=== PATIENT | male | born 1965 | race Caucasian/White ===

== ENCOUNTER 2021-02-04 17:24 | Emergency (ER) | payer BC ==
[2021-02-04] MEDS ORDERED: Sodium Chloride 0.9% 10 ML Syringe FLUSH PRN (17:29)
[2021-02-04] MEDS ORDERED: Sodium Chloride 0.9% 2.5 ML Syringe FLUSH PRN (17:29)
--- NOTE | 2021-02-04 17:39 | EDM.PDOC ---
ED HPI GENERAL MEDICAL PROBLEM - General Chief Complaint: Abdominal Pain Stated Complaint: ABDOMINAL PAIN Time Seen by Provider: 02/04/21 17:28 Source of Information: Reports: Patient History Limitations: Reports: No Limitations - History of Present Illness INITIAL COMMENTS - FREE TEXT/NARRATIVE: HISTORY AND PHYSICAL: History of present illness: Patient is a 55-year-old male who presents to the emergency room with complaints of abdominal pain. He states last week he had a 3-day episode of epigastric pain with nausea and vomiting. He was able to start to feel better he could tolerate food. He states a few days later symptoms started again. Pain is located in the epigastrium, upper abdomen and today it radiates into the right lower quadrant. He states he has had nausea and vomiting. Unable to keep fluids or food down. Patient denies any fever, chills, headache, change in vision, syncope or near syncope. Denies any chest pain, back pain, shortness of breath or cough. Denies any diarrhea, constipation or dysuria. Has not noted any blood in urine or stool. Patient has been eating and drinking appropriately. Denies any recent travel, antibiotic use or sick contacts. Denies any alcohol or drug abuse. + Tobacco user/social alcohol use. *Not COVID-19 vaccinated Review of systems: As per history of present illness and below otherwise all systems reviewed and negative. Past medical history: As per history of present illness and as reviewed below otherwise noncontributory. Surgical history: As per history of present illness and as reviewed below otherwise noncontributory. Social history: See social history for further information Family history: As per history of present illness and as reviewed below otherwise noncontributory. Physical exam: General: Well developed and well nourished 55-year-old male. Alert and orientated x 3. Nontoxic in appearance and in no acute distress. Vital signs are stable and have been reviewed by me. Nursing notes were reviewed. Accompanied by significant other. HEENT: Atraumatic, normocephalic, pupils equal and reactive bilaterally, negative for conjunctival pallor or scleral icterus, mucous membranes moist, trachea midline. No drooling or trismus noted. No meningeal signs. No hot potato voice noted. Lungs: Clear to auscultation bilaterally. No wheezes, rales, or rhonchi. Chest nontender. Normal work of breathing, no accessory muscles used. Heart: S1S2, regular rate and rhythm without overt murmur, gallops, or rubs. No JVD. No peripheral edema Abdomen: Soft, nondistended, RLQ and epigastric tenderness to palpation. +Rebound tenderness. Normoactive bowel sounds. Negative for masses or costovertebral tenderness. Skin: Intact, warm, dry. No lesions or rashes noted. Hematologic: No petechiae or purpra. Mucosa appropriate color and normal nail bed color and refill. Extremities: Atraumatic, moves all extremities per self without difficulty or deficits, negative for cords or calf pain. Neurovascular unremarkable. Neuro: Awake, alert, oriented. Cranial nerves II through XII unremarkable. Cerebellum unremarkable. Motor and sensory unremarkable throughout. Exam nonfocal. Psychiatric: Mood and affect are appropriate. Normal thought process. Answering questions appropriately. Notes: *This patient was seen and evaluated during the 2019 SARS-CoV-2 novel coronavirus pandemic period. Community viral transmission is ongoing at time of this encounter and the emergency department is operating under pandemic response procedures. Patient is a 55-year-old male who presents to the emergency room with complaints of epigastric pain, RLQ pain, nausea and vomiting. He states he has had symptoms on and off since January 23. Significant other who is at bedside states that he has been complaining of significant pain and "he has a high pain tolerance". No one else in the household is ill. No recent travel. He does have mild tenderness to the epigastrium. We will do basic lab work, IV fluids and medications. Patient does have a leukocytosis. Will do a CT of the abdomen and pelvis. Pain is improved since medication. CT shows a mesenteric vein thrombus, without evidence of portal vein thrombus. A mesenteric vein branch of the right lower quadrant appears to be most severely affected. Surrounding edema/stranding within the adjacent mesentery. The appendix is mildly enlarged, but the surrounding mesenteric stranding, is probably more likely related to the venous thrombosis described above, however early or developing appendicitis is not entirely excludable. No other acute abnormalities identified. Extensive diverticulosis of distal descending and sigmoid colon with no radiographic evidence of diverticulitis. Distended gallbladder, with multiple calculi, but no evidence to suggest acute cholecystitis/biliary enlargement. 2044: Dr. Hernandez was consulted on this case. He states he is not comfortable keeping the patient here and request that the patient be sent to a higher level of care where they have interventional radiology capabilities. 2100: I spoke with Dr. Dennison, the general surgeon at [facility] in [place]. He states he will happily accept this patient for further care and management. He does request anticoagulation, heparin to be started prior to patient leaving. He states this patient does not need IV antibiotics at this time. I also spoke with Dr. Ventura the emergency room about patient's transfer and arrival. I have talked with the patient about today's findings, in addition to providing specific details for plan of care. Reassessment at the time of disposition demonstrates that the patient is in no acute distress. He continues to have mild/moderate RLQ pain. Heparin was started per protocol. Vital signs are stable. They are aware of the need for transfer to a higher level of care and are agreeable. Diagnostics: CBC, CMP, UA, lipase, troponin Therapeutics: IV fluid, Pepcid, morphine, Zofran, Heparin Impression: Mesenteric vein thrombus Acute abdominal pain secondary to possible secondary appendicitis Plan: Transfer to [facility] via ground EMS Definitive disposition and diagnosis as appropriate pending reevaluation and review of above. Abdominal Pain Pain Score (Numeric/FACES): 6 - Related Data Allergies Allergy/AdvReac Type Severity Reaction Status Date / Time No Known Allergies Allergy Verified 02/04/21 18:13 Home Meds: Home Meds . [No Known Home Meds] 02/04/21 [History] ED ROS GENERAL - Review of Systems Review Of Systems: Comprehensive ROS is negative, except as noted in HPI. ED EXAM, GI/ABD - Physical Exam Exam: See Below (See dictation) Course - Vital Signs Last Recorded V/S: Last Vital Signs Temp 97.6 F 02/04/21 17:50 Pulse 84 02/04/21 20:33 Resp 20 02/04/21 20:33 BP 113/64 02/04/21 20:33 Pulse Ox 95 02/04/21 20:33 - Orders/Labs/Meds Orders: Active Orders 24 hr Category Date Time Status INR,PT,PROTHROMBIN TIME [COAG] Stat Lab 02/04/21 20:46 Ordered LACTATE SEPSIS W/ REFLEX [CHEM] Stat Lab 02/04/21 20:46 Ordered PTT,PARTIAL THROMBOPLSTIN TIME [COAG] Stat Lab 02/04/21 20:46 Ordered Heparin Sodium Med 02/04/21 21:06 Once 5,000 units IVPUSH ONETIME ONE Heparin Sodium/0.45% NaCl [Heparin 25,000 Units in 1/2 Med 02/04/21 21:15 Ordered NS 500 ML] 500 ml IV TITRATE Morphine Med 02/04/21 21:06 Once 4 mg IVPUSH ONETIME ONE Sodium Chloride 0.9% [Normal Saline] 1,000 ml Med 02/04/21 19:25 Active IV STAT Sodium Chloride 0.9% [Saline Flush] Med 02/04/21 17:29 Active 10 ml FLUSH ASDIRECTED PRN Sodium Chloride 0.9% [Saline Flush] Med 02/04/21 17:29 Active 2.5 ml FLUSH ASDIRECTED PRN Saline Lock Insert [OM.PC] Stat Oth 02/04/21 17:29 Ordered Medication Orders Sodium Chloride (Normal Saline) 1,000 mls @ 125 mls/hr IV STAT ONE Stop: 02/05/21 03:24 Last Admin: 02/04/21 19:34 Dose: 125 mls/hr Documented by: EVERTIM Sodium Chloride (Sodium Chloride 0.9% 10 Ml Syringe) 10 ml FLUSH ASDIRECTED PRN PRN Reason: Keep Vein Open Last Admin: 02/04/21 19:28 Dose: 10 ml Documented by: EVERTIM Sodium Chloride (Sodium Chloride 0.9% 2.5 Ml Syringe) 2.5 ml FLUSH ASDIRECTED PRN PRN Reason: Keep Vein Open Last Admin: 02/04/21 19:28 Dose: 2.5 ml Documented by: ANGELIKA Labs: Laboratory Tests 02/04/21 02/04/21 02/04/21 Range/Units 17:59 17:59 17:59 WBC 12.90 H (4.0-11.0) K/uL RBC 4.23 L (4.50-5.90) M/uL Hgb 12.8 L (13.0-17.0) g/dL Hct 37.4 L (38.0-50.0) % MCV 88.4 (80.0-98.0) fL MCH 30.3 (27.0-32.0) pg MCHC 34.2 (31.0-37.0) g/dL RDW Std Deviation 47.0 (28.0-62.0) fl RDW Coeff of Bandar 15 (11.0-15.0) % Plt Count 394 (150-400) K/uL Neut % (Auto) 75.9 (48.0-80.0) % Lymph % (Auto) 16.8 (16.0-40.0) % [place] % (Auto) 6.0 (0.0-15.0) % Eos % (Auto) 1.1 (0.0-7.0) % Baso % (Auto) 0.2 (0.0-1.5) % Neut # (Auto) 9.8 H (1.4-5.7) K/uL Lymph # (Auto) 2.2 (0.6-2.4) K/uL [place] # (Auto) 0.8 (0.0-0.8) K/uL Eos # (Auto) 0.1 (0.0-0.7) K/uL Baso # (Auto) 0.0 (0.0-0.1) K/uL Nucleated RBC % 0.0 /100WBC Nucleated RBCs # 0 K/uL Sodium 138 (136-148) mmol/L Potassium 4.1 (3.5-5.1) mmol/L Chloride 101 (98-107) mmol/L Carbon Dioxide 28.7 (21.0-32.0) mmol/L BUN 14 (7.0-18.0) mg/dL Creatinine 0.8 (0.8-1.3) mg/dL Est Cr Clr Drug Dosing 109.81 mL/min Estimated GFR (MDRD) > 60.0 ml/min Glucose 109 H (74-106) mg/dL Calcium 9.5 (8.5-10.1) mg/dL Total Bilirubin 1.0 (0.2-1.0) mg/dL AST 20 (15-37) IU/L ALT 49 (14-63) IU/L Alkaline Phosphatase 85 (46-116) U/L Troponin I < 0.050 (0.000-0.056) ng/mL Total Protein 7.9 (6.4-8.2) g/dL Albumin 3.5 (3.4-5.0) g/dL Globulin 4.4 H (2.6-4.0) g/dL Albumin/Globulin Ratio 0.8 L (0.9-1.6) Lipase 79 (73-393) U/L Urine Color Urine Appearance Urine pH (5.0-8.0) Ur Specific Williams (1.001-1.035) Urine Protein (NEGATIVE) mg/dL Urine Glucose (UA) (NEGATIVE) mg/dL Urine Ketones (NEGATIVE) mg/dL Urine Occult Blood (NEGATIVE) Urine Nitrite (NEGATIVE) Urine Bilirubin (NEGATIVE) Urine Urobilinogen (<2.0) EU/dL Ur Leukocyte Esterase (NEGATIVE) 02/04/21 Range/Units 20:00 WBC (4.0-11.0) K/uL RBC (4.50-5.90) M/uL Hgb (13.0-17.0) g/dL Hct (38.0-50.0) % MCV (80.0-98.0) fL MCH (27.0-32.0) pg MCHC (31.0-37.0) g/dL RDW Std Deviation (28.0-62.0) fl RDW Coeff of Bandar (11.0-15.0) % Plt Count (150-400) K/uL Neut % (Auto) (48.0-80.0) % Lymph % (Auto) (16.0-40.0) % [place] % (Auto) (0.0-15.0) % Eos % (Auto) (0.0-7.0) % Baso % (Auto) (0.0-1.5) % Neut # (Auto) (1.4-5.7) K/uL Lymph # (Auto) (0.6-2.4) K/uL [place] # (Auto) (0.0-0.8) K/uL Eos # (Auto) (0.0-0.7) K/uL Baso # (Auto) (0.0-0.1) K/uL Nucleated RBC % /100WBC Nucleated RBCs # K/uL Sodium (136-148) mmol/L Potassium (3.5-5.1) mmol/L Chloride (98-107) mmol/L Carbon Dioxide (21.0-32.0) mmol/L BUN (7.0-18.0) mg/dL Creatinine (0.8-1.3) mg/dL Est Cr Clr Drug Dosing mL/min Estimated GFR (MDRD) ml/min Glucose (74-106) mg/dL Calcium (8.5-10.1) mg/dL Total Bilirubin (0.2-1.0) mg/dL AST (15-37) IU/L ALT (14-63) IU/L Alkaline Phosphatase (46-116) U/L Troponin I (0.000-0.056) ng/mL Total Protein (6.4-8.2) g/dL Albumin (3.4-5.0) g/dL Globulin (2.6-4.0) g/dL Albumin/Globulin Ratio (0.9-1.6) Lipase (73-393) U/L Urine Color YELLOW Urine Appearance CLEAR Urine pH 6.5 (5.0-8.0) Ur Specific Williams 1.010 (1.001-1.035) Urine Protein NEGATIVE (NEGATIVE) mg/dL Urine Glucose (UA) NEGATIVE (NEGATIVE) mg/dL Urine Ketones NEGATIVE (NEGATIVE) mg/dL Urine Occult Blood NEGATIVE (NEGATIVE) Urine Nitrite NEGATIVE (NEGATIVE) Urine Bilirubin NEGATIVE (NEGATIVE) Urine Urobilinogen 0.2 (<2.0) EU/dL Ur Leukocyte Esterase NEGATIVE (NEGATIVE) Meds: Medications Generic Name Dose Route Start Last Admin Trade Name Freq PRN Reason Stop Dose Admin Sodium Chloride 1,000 mls @ 125 mls/hr 02/04/21 19:25 02/04/21 19:34 Normal Saline IV 02/05/21 03:24 125 mls/hr STAT ONE Administration Sodium Chloride 10 ml 02/04/21 17:29 02/04/21 19:28 Sodium Chloride 0.9% 10 Ml Syringe FLUSH 10 ml ASDIRECTED PRN Administration Keep Vein Open Sodium Chloride 2.5 ml 02/04/21 17:29 02/04/21 19:28 Sodium Chloride 0.9% 2.5 Ml Syringe FLUSH 2.5 ml ASDIRECTED PRN Administration Keep Vein Open Discontinued Medications Generic Name Dose Route Start Last Admin Trade Name Freq PRN Reason Stop Dose Admin Famotidine 20 mg 02/04/21 17:56 02/04/21 18:49 Famotidine 20 Mg/2 Ml Sdv IVPUSH 02/04/21 17:57 20 mg ONETIME ONE Administration Sodium Chloride 1,000 mls @ 999 mls/hr 02/04/21 17:55 02/04/21 19:27 Normal Saline IV 02/04/21 18:55 999 mls/hr STAT ONE Administration Iopamidol 100 ml 02/04/21 19:45 02/04/21 19:53 Iopamidol 755 Mg/Ml 500 Ml Multipack Bottle IVPUSH 02/04/21 19:46 100 ml ONETIME STA Administration Morphine Sulfate 4 mg 02/04/21 17:55 02/04/21 18:53 Morphine 4 Mg/Ml Syringe IVPUSH 02/04/21 17:56 4 mg ONETIME ONE Administration Ondansetron HCl 4 mg 02/04/21 17:55 02/04/21 18:49 Ondansetron 4 Mg/2 Ml Sdv IVPUSH 02/04/21 17:56 4 mg ONETIME ONE Administration Departure - Departure Time of Disposition: 21:20 Disposition: DC/[facility]fer to [facility] 02 Clinical Impression: Mesenteric vein thrombosis, Acute abdominal pain in right lower quadrant - Discharge Information Referrals: PCP,None [Primary Care Provider] - Forms: ED Department Discharge Sepsis Event Note (ED) - Focused Exam Vital Signs: Vital Signs Temp Pulse Resp BP Pulse Ox 02/04/21 20:33 84 20 113/64 95 02/04/21 17:50 97.6 F 96 17 133/69 98 - My Orders Last 24 Hours: My Active Orders 02/04/21 17:29 Sodium Chloride 0.9% [Saline Flush] 10 ml FLUSH ASDIRECTED PRN Sodium Chloride 0.9% [Saline Flush] 2.5 ml FLUSH ASDIRECTED PRN Saline Lock Insert [OM.PC] Stat 02/04/21 19:25 Sodium Chloride 0.9% [Normal Saline] 1,000 ml IV STAT 02/04/21 20:46 INR,PT,PROTHROMBIN TIME [COAG] Stat LACTATE SEPSIS W/ REFLEX [CHEM] Stat PTT,PARTIAL THROMBOPLSTIN TIME [COAG] Stat 02/04/21 21:06 Heparin Sodium 5,000 units IVPUSH ONETIME ONE Morphine 4 mg IVPUSH ONETIME ONE 02/04/21 21:15 Heparin Sodium/0.45% NaCl [Heparin 25,000 Units in 1/2 NS 500 ML] 500 ml IV TITRATE - Assessment/Plan Last 24 Hours: My Active Orders 02/04/21 17:29 Sodium Chloride 0.9% [Saline Flush] 10 ml FLUSH ASDIRECTED PRN Sodium Chloride 0.9% [Saline Flush] 2.5 ml FLUSH ASDIRECTED PRN Saline Lock Insert [OM.PC] Stat 02/04/21 19:25 Sodium Chloride 0.9% [Normal Saline] 1,000 ml IV STAT 02/04/21 20:46 INR,PT,PROTHROMBIN TIME [COAG] Stat LACTATE SEPSIS W/ REFLEX [CHEM] Stat PTT,PARTIAL THROMBOPLSTIN TIME [COAG] Stat 02/04/21 21:06 Heparin Sodium 5,000 units IVPUSH ONETIME ONE Morphine 4 mg IVPUSH ONETIME ONE 02/04/21 21:15 Heparin Sodium/0.45% NaCl [Heparin 25,000 Units in 1/2 NS 500 ML] 500 ml IV TITRATE
[2021-02-04] MEDS ORDERED: Morphine 4 MG/ML Syringe IVPUSH ONE ×2 (17:55→21:06)
[2021-02-04] MEDS ORDERED: Ondansetron 4 MG/2 ML SDV IVPUSH ONE (17:55)
[2021-02-04] MEDS ORDERED: Famotidine 20 MG/2 ML SDV IVPUSH ONE (17:56)
[2021-02-04 18:46] LABS: BLOOD UREA NITROGEN,BUN 14 mg/dL (7.0-18.0); CARBON DIOXIDE,CO2 28.7 mmol/L (21.0-32.0); CHLORIDE,CL 101 mmol/L (98-107); GLUCOSE RANDOM 109 mg/dL (74-106); LIPASE 79 U/L (73-393); POTASSIUM,K 4.1 mmol/L (3.5-5.1); SODIUM,NA 138 mmol/L (136-148)
[2021-02-04] MEDS: Sodium Chloride 0.9% 1,000 ML IV ONE ×2 (18:49→19:27)
[2021-02-04] MEDS ORDERED: Sodium Chloride 0.9% 1,000 ML IV ONE (19:25)
[2021-02-04] MEDS ORDERED: Iopamidol 755 MG/ML 500 ML Multipack Bottle IVPUSH STA (19:45)
--- NOTE | 2021-02-04 20:44 | CT ---
INDICATION: Right lower quadrant pain, vomiting TECHNIQUE: CT abdomen and pelvis acquired with 100 mL Isovue 370 IV contrast. COMPARISON: None FINDINGS: Lower chest: Nonspecific 9 millimeter nodule in the anterolateral right middle lobe, image 2 of series 202. Otherwise, unremarkable. Liver: Unremarkable. Spleen: Unremarkable. Pancreas: Unremarkable. Gallbladder and bile ducts: Distended gallbladder containing multiple calculi, no evidence to suggest acute cholecystitis. There is no biliary enlargement. Kidneys: Unremarkable. Adrenal glands: Unremarkable. GI tract: Appendix is enlarged, measuring up to 13 millimeters transversely. There is mild linear stranding present in the right lower quadrant. Appendicitis not entirely excluded, but the mesenteric stranding is more likely related to mesenteric vein thrombosis, which can be best seen on coronal images 54 through 57 of series 203. The venous branch to the right lower quadrant also demonstrates thrombus within, as visible on images 55-63 of series 203. No focal bowel wall thickening. Moderate diverticulosis of the distal descending and sigmoid colon, no radiographic evidence of diverticulitis. Vascular structures: Negative. No sign of aneurysm. Lymph nodes: Unremarkable. Miscellaneous: Unremarkable. No free air. Small amount of free fluid in the pelvis, nonspecific and possibly reactive Pelvic Organs: Unremarkable. Bones: Multilevel lumbar degenerative disc disease/vacuum phenomena. Extensive facet hypertrophic change, on the right at lumbosacral junction. No acute fracture/bony abnormality. IMPRESSION: 1. Mesenteric vein thrombus, without evidence of portal vein thrombus. A mesenteric vein branch of the right lower quadrant appears to be most severely affected. Surrounding edema/stranding within the adjacent mesentery. 2. The appendix is mildly enlarged, but the surrounding mesenteric stranding, is probably more likely related to the venous thrombosis described above, however early or developing appendicitis is not entirely excludable. 3. No other acute abnormalities identified. 4. Extensive diverticulosis of distal descending and sigmoid colon with no radiographic evidence of diverticulitis. 5. Distended gallbladder, with multiple calculi, but no evidence to suggest acute cholecystitis/biliary enlargement. Please note that all CT scans at this facility use dose modulation, iterative reconstruction, and/or weight-based dosing when appropriate to reduce radiation dose to as low as reasonably achievable. Dictated by Iván Valdez MD @ 02/04/2021 8:42:[address] Iván Valdez @ Feb 04 2021 8:42PM
[2021-02-04] MEDS ORDERED: Heparin Sodium 5,000 Units/ML Vial IVPUSH ONE (21:06)
[2021-02-04] MEDS ORDERED: Heparin Sodium/0.45% NaCl 500 ML IV SCH (21:15)
== END 2021-02-04 22:08 ==
LOC: MW.ED 17:24
DX: K55.059 Acute (reversible) ischemia of intestine, part and extent unspecified (principal)
CPT/HCPCS: 36415; 74177; 80053; 81003; 83605; 83690; 84484; 85025; 85610; 85730; 96365; 96375; 96376; 99285; J1644; J2270; J2405; J3490; J7030; Q9967; 99284

== ENCOUNTER 2021-02-21 15:12 | Emergency (ER) | payer BC ==
[2021-02-21] MEDS ORDERED: Sodium Chloride 0.9% 2.5 ML Syringe FLUSH PRN (16:23)
[2021-02-21] MEDS ORDERED: Sodium Chloride 0.9% 10 ML Syringe FLUSH PRN (16:23)
[2021-02-21] MEDS ORDERED: Sodium Chloride 0.9% 1,000 ML IV ONE ×2 (16:27→18:41)
[2021-02-21 17:17] LABS: BLOOD UREA NITROGEN,BUN 13 mg/dL (7.0-18.0); CARBON DIOXIDE,CO2 27.5 mmol/L (21.0-32.0); CHLORIDE,CL 101 mmol/L (98-107); GLUCOSE RANDOM 125 mg/dL (74-106); LIPASE 43 U/L (73-393); SODIUM,NA 136 mmol/L (136-148)
[2021-02-21 17:39] LABS: CORONAVIRUS COVID-19 NAA NEGATIVE (NEGATIVE); INFLUENZA A NAA NEGATIVE (NEGATIVE); INFLUENZA B NAA NEGATIVE (NEGATIVE)
--- NOTE | 2021-02-21 17:47 | EDM.PDOC ---
ED HPI GENERAL MEDICAL PROBLEM - General Chief Complaint: Gastrointestinal Problem Stated Complaint: VOMMITTING AND FEVER Time Seen by Provider: 02/21/21 15:15 Source of Information: Reports: Patient History Limitations: Reports: No Limitations - History of Present Illness INITIAL COMMENTS - FREE TEXT/NARRATIVE: HISTORY AND PHYSICAL: History of present illness: Patient is a 55-year-old male who presents emergency room today with concern of fever that started last night documented that 101 orally at home. Patient states that he is also had the chills and sweating all night long and states he woke up this morning covered in sweat and with a fever. Patient states he did take a dose of Tylenol approximately 1 hour before coming to the emergency room and states that this has "wiped out "his fever and states that he has improved symptoms with the Tylenol. 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 Patient states he is not having any abdominal pain or any other pain associated with the fever. Patient denies chest pain, shortness of breath, or cough. Denies headache, neck stiff ness, change in vision, syncope, or near syncope. Denies nausea, vomiting, abdominal pain, diarrhea, constipation, or dysuria. Has not noted any blood in urine or stool. Patient has been eating and drinking appropriately. Review of systems: As per history of present illness and below otherwise all systems reviewed and negative. Past medical history: As per history of present illness and as reviewed below otherwise noncontributory. Surgical history: As per history of present illness and as reviewed below otherwise noncontributory. Social history: See social history for further information Family history: As per history of present illness and as reviewed below otherwise noncontributory. Physical exam: General: Patient is alert, oriented, and in no acute distress. Patient sitting comfortably on exam table. Vitals stable and reviewed by me. HEENT: Atraumatic, normocephalic, pupils equal and reactive bilaterally, negative for conjunctival pallor or scleral icterus, mucous membranes moist, TMs normal bilaterally, throat clear, neck supple, nontender, trachea midline. No drooling or trismus noted. No meningeal signs. No hot potato voice noted. Lungs: Clear to auscultation, breath sounds equal bilaterally, chest nontender. Heart: S1S2, regular rate and rhythm without overt murmur Abdomen: Super small incisions noted to the right sided abdomen which appear to be healing well and nontender without drainage. Otherwise, soft, nondistended, nontender. Negative for masses or hepatosplenomegaly. Negative for costovertebral tenderness. Pelvis: Stable nontender. Genitourinary: Deferred. Rectal: Deferred. Skin: Intact, warm, dry. No lesions or rashes noted. Extremities: Otherwise, atraumatic, negative for cords or calf pain. Neurovascular unremarkable. Neuro: Awake, alert, oriented. Cranial nerves II through XII unremarkable. Cerebellum unremarkable. Motor and sensory unremarkable throughout. Exam nonfocal. Notes: Dr. Caruso verbally involved in patient care. Patient is a 55-year-old male who presents emergency room today with concern of fever, chills, and sweats starting last night and occurring today. Upon arrival to the ED, patient is vitally stable and well-appearing on exam and afebrile. However, patient has noted to take a dose of Tylenol for fever 1 hour prior to coming to the emergency room. Patient does have a recent history of being transferred for mesenteric vein thrombosis. Upon chart review patient was seen in our emergency room on 02/04/2021 and at that time was transferred to [facility] to Dr. Dennison, general surgery, in my not. Patient was accepted by the ED provider Dr. 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 Patient was started on heparin in the emergency room and transferred via EMS. Abdominal pelvic CT scan on 02/04/2021 does show mesenteric vein thrombosis without evidence of portal vein thrombus affecting the right lower quadrant more significantly with surrounding edema and stranding in the mesentery. The appendix at this time was also mildly enlarged with surrounding stranding, thought to be more related to the venous thrombosis however could not rule out early appendicitis. Also shows distended gallbladder with multiple calculi but no evidence to suggest acute cholecystitis or biliary enlargement. Will obtain post-op labwork today, provide 1LNS bolus and reassess patient. See. Dr. Caruso dictation for specific EKG interpretation. However, NSR without STEMI. CBC is remarkable for a leukocytosis at 18.88 which has increased since his prior on 02/04/2021 which was 12.9. Patient also noted to be mildly anemic with a hemoglobin of 12 and hematocrit of 35.2 respectively. Red blood cells mildly decreased at 4.09. Otherwise, remainder of CBC is unremarkable. CMP noted for a mild elevation of glucose at 125 and mild isolated bilirubin at 1.1. Otherwise, mild derangements of CMP unremarkable. Lipase is 43 and not elevated. Influenza and Covid negative. Will add lactate and blood cultures due to increasing leukocytosis. While awaiting diagnostic completion, patient does begin to have rigors and shaking at bedside with the oral temperature at 100.5. Patient does start to develop abdominal pain and mild tachycardia at 105 the 110s, otherwise vitally stable. Will give dose of meropenem and vancomycin for possible sepsis while awaiting diagnostic completion for source of infection. 20 cc/kg bolus NS given. Patient given pain medication and will reassess patient. Lactate is within normal limits. Chest x-ray shows no acute cardiopulmonary findings. Abdominal pelvic CT shows no sign of deep-seated infection in the abdomen or pelvis. There is a new thrombus of the intrahepatic portal vein and the superior posterior right lobe of the liver, segment 7. Decrease in mesenteric venous thrombus with clearing of thrombus from the right lateral mesenteric vein and decrease in nonocclusive thrombus in the SMV, now with a small amount of thrombus seen in the superior SMV. 2 new metallic densities in the right lobe of the liver, possibly from therapeutic embolism. Stable moderate cholelithiasis without sign of acute cholecystitis. Stable severe diverticulosis of the descending colon with no sign of diverticulitis. Mild dilation of the appendix at 10 mm, but there is resolution of wall thickening and mild periappendiceal soft tissue stranding with clearance of the right lateral mesenteric vein thrombus. Nothing seen that would indicate acute appendicitis. Stable sigmoid diverticulosis without diverticulitis. Patient has improvement of his abdominal pain with pain medication, fever has improved with Toradol, patient remains mildly tachycardic 100s to 105 on exam and has improvement of his abdominal pain with therapeutics. Heparin bolus/GGT initiated due to new hepatic portal vein thrombosis. I did call and speak to the interventional radiologist on-call, Dr. Chacok, and thoroughly discussed patient's case. He would like to review patient's procedure, CT from his past visit, and new CT today to come up with a plan for patient, states he will likely have a plan on if intervention necessary in the AM. However, given patient's complexity of symptoms, he does feel a higher level of care and transfer to the [facility] would be warranted. I did speak to Dr. Johnson, emergency room provider, and thoroughly discussed patient's case. Accepting of transfer. EMS arranged. EMS at bedside. Patient transitioned to EMS care in stable condition with transfer to [facility] Diagnostics: EKG, CBC, CMP, UA, CXR, Trop, Abd/Pelvic ct w cont., lipase, lactate, blood cultures x 2, COVID/Flu, ptt Therapeutics: NS, Toradol, Zofran, Dilaudid, Meropenem, Vancomycin, Heparin bolus / gtt, Impression: Acute intrahepatic portal vein thrombosis Fever with leukocytosis Plan: Transfer to Dr. Johnson at [facility] via EMS Definitive disposition and diagnosis as appropriate pending reevaluation and review of above. - Related Data Allergies Allergy/AdvReac Type Severity Reaction Status Date / Time Penicillins Allergy Hives Verified 02/21/21 18:37 Home Meds: Home Meds Apixaban [Eliquis] 02/21/21 [History] Past Medical History - Past Health History Medical/Surgical History: Denies Medical/Surgical History Other Gastrointestinal History: mesinteric blood clot - Infectious Disease History Infectious Disease History: Reports: None - Past Surgical History GI Surgical History: Reports: Other (See Below) Other GI Surgeries/Procedures: external clot removal Social & Family History - Family History Family Medical History: No Pertinent Family History - Tobacco Use Tobacco Use Status *Q: Never Tobacco User - Caffeine Use Caffeine Use: Reports: None - Recreational Drug Use Recreational Drug Use: No ED ROS GENERAL - Review of Systems Review Of Systems: Comprehensive ROS is negative, except as noted in HPI. ED EXAM, GENERAL - Physical Exam Exam: See Below (see dictation) Course - Vital Signs Last Recorded V/S: Last Vital Signs Temp 98.2 F 02/21/21 16:49 Pulse 103 H 02/21/21 19:50 Resp 20 02/21/21 19:50 BP 91/56 L 02/21/21 19:50 Pulse Ox 96 02/21/21 19:50 - Orders/Labs/Meds Orders: Active Orders 24 hr Category Date Time Status EKG Documentation Completion [RC] STAT Care 02/21/21 17:50 Active CULTURE BLOOD [BC] Stat Lab 02/21/21 18:00 Received CULTURE BLOOD [BC] Stat Lab 02/21/21 18:07 Received Heparin Sodium/0.45% NaCl [Heparin 25,000 Units in 1/2 Med 02/21/21 19:38 Active NS 500 ML] 500 ml IV NOW Sodium Chloride 0.9% [Saline Flush] Med 02/21/21 16:23 Active 10 ml FLUSH ASDIRECTED PRN Sodium Chloride 0.9% [Saline Flush] Med 02/21/21 16:23 Active 2.5 ml FLUSH ASDIRECTED PRN Blood Culture x2 Reflex Set [OM.PC] Stat Oth 02/21/21 17:31 Ordered Saline Lock Insert [OM.PC] Stat Oth 02/21/21 16:23 Ordered Medication Orders Heparin Sodium/Sodium Chloride (Heparin 25,000 Units In 1/2 Ns 500 Ml) 500 mls @ 27.941 mls/hr IV NOW STA; Protocol Stop: 02/22/21 13:30 Last Admin: 02/21/21 19:46 Dose: 14 units/kg/hr, 27.941 mls/hr Documented by: KAYODE Cosigned by: MARK Sodium Chloride (Sodium Chloride 0.9% 10 Ml Syringe) 10 ml FLUSH ASDIRECTED PRN PRN Reason: Keep Vein Open Last Admin: 02/21/21 16:49 Dose: 10 ml Documented by: ERNESTO Sodium Chloride (Sodium Chloride 0.9% 2.5 Ml Syringe) 2.5 ml FLUSH ASDIRECTED PRN PRN Reason: Keep Vein Open Last Admin: 02/21/21 16:49 Dose: 2.5 ml Documented by: ERNESTO Labs: Laboratory Tests 02/21/21 02/21/21 02/21/21 Range/Units 16:35 16:35 16:35 WBC 18.88 H (4.0-11.0) K/uL RBC 4.09 L (4.50-5.90) M/uL Hgb 12.0 L (13.0-17.0) g/dL Hct 35.2 L (38.0-50.0) % MCV 86.1 (80.0-98.0) fL MCH 29.3 (27.0-32.0) pg MCHC 34.1 (31.0-37.0) g/dL RDW Std Deviation 44.3 (28.0-62.0) fl RDW Coeff of Bandar 14 (11.0-15.0) % Plt Count 273 (150-400) K/uL MPV 8.90 (7.40-12.00) fL Neut % (Auto) 83.3 H (48.0-80.0) % Lymph % (Auto) 10.8 L (16.0-40.0) % Stanley % (Auto) 5.2 (0.0-15.0) % Eos % (Auto) 0.5 (0.0-7.0) % Baso % (Auto) 0.2 (0.0-1.5) % Neut # (Auto) 15.7 H (1.4-5.7) K/uL Lymph # (Auto) 2.0 (0.6-2.4) K/uL Stanley # (Auto) 1.0 H (0.0-0.8) K/uL Eos # (Auto) 0.1 (0.0-0.7) K/uL Baso # (Auto) 0.0 (0.0-0.1) K/uL Nucleated RBC % 0.0 /100WBC Nucleated RBCs # 0 K/uL APTT 30.5 (18.6-31.3) SEC Sodium 136 (136-148) mmol/L Potassium 4.0 (3.5-5.1) mmol/L Chloride 101 (98-107) mmol/L Carbon Dioxide 27.5 (21.0-32.0) mmol/L BUN 13 (7.0-18.0) mg/dL Creatinine 1.1 (0.8-1.3) mg/dL Est Cr Clr Drug Dosing 79.86 mL/min Estimated GFR (MDRD) > 60.0 ml/min Glucose 125 H (74-106) mg/dL Lactic Acid (0.4-2.0) mmol/L Calcium 9.4 (8.5-10.1) mg/dL Total Bilirubin 1.1 H (0.2-1.0) mg/dL AST 17 (15-37) IU/L ALT 46 (14-63) IU/L Alkaline Phosphatase 72 (46-116) U/L Troponin I (0.000-0.056) ng/mL Total Protein 7.7 (6.4-8.2) g/dL Albumin 3.3 L (3.4-5.0) g/dL Globulin 4.4 H (2.6-4.0) g/dL Albumin/Globulin Ratio 0.8 L (0.9-1.6) Lipase 43 L (73-393) U/L Urine Color Urine Appearance Urine pH (5.0-8.0) Ur Specific [place] (1.001-1.035) Urine Protein (NEGATIVE) mg/dL Urine Glucose (UA) (NEGATIVE) mg/dL Urine Ketones (NEGATIVE) mg/dL Urine Occult Blood (NEGATIVE) Urine Nitrite (NEGATIVE) Urine Bilirubin (NEGATIVE) Urine Urobilinogen (<2.0) EU/dL Ur Leukocyte Esterase (NEGATIVE) Influenza Type A RNA (NEGATIVE) Influenza Type B RNA (NEGATIVE) SARS-CoV-2 RNA (HERNÁN) (NEGATIVE) 02/21/21 02/21/21 02/21/21 Range/Units 16:48 18:00 18:00 WBC (4.0-11.0) K/uL RBC (4.50-5.90) M/uL Hgb (13.0-17.0) g/dL Hct (38.0-50.0) % MCV (80.0-98.0) fL MCH (27.0-32.0) pg MCHC (31.0-37.0) g/dL RDW Std Deviation (28.0-62.0) fl RDW Coeff of Bandar (11.0-15.0) % Plt Count (150-400) K/uL MPV (7.40-12.00) fL Neut % (Auto) (48.0-80.0) % Lymph % (Auto) (16.0-40.0) % Stanley % (Auto) (0.0-15.0) % Eos % (Auto) (0.0-7.0) % Baso % (Auto) (0.0-1.5) % Neut # (Auto) (1.4-5.7) K/uL Lymph # (Auto) (0.6-2.4) K/uL Stanley # (Auto) (0.0-0.8) K/uL Eos # (Auto) (0.0-0.7) K/uL Baso # (Auto) (0.0-0.1) K/uL Nucleated RBC % /100WBC Nucleated RBCs # K/uL APTT (18.6-31.3) SEC Sodium (136-148) mmol/L Potassium (3.5-5.1) mmol/L Chloride (98-107) mmol/L Carbon Dioxide (21.0-32.0) mmol/L BUN (7.0-18.0) mg/dL Creatinine (0.8-1.3) mg/dL Est Cr Clr Drug Dosing mL/min Estimated GFR (MDRD) ml/min Glucose (74-106) mg/dL Lactic Acid 1.5 (0.4-2.0) mmol/L Calcium (8.5-10.1) mg/dL Total Bilirubin (0.2-1.0) mg/dL AST (15-37) IU/L ALT (14-63) IU/L Alkaline Phosphatase (46-116) U/L Troponin I < 0.050 (0.000-0.056) ng/mL Total Protein (6.4-8.2) g/dL Albumin (3.4-5.0) g/dL Globulin (2.6-4.0) g/dL Albumin/Globulin Ratio (0.9-1.6) Lipase (73-393) U/L Urine Color Urine Appearance Urine pH (5.0-8.0) Ur Specific [place] (1.001-1.035) Urine Protein (NEGATIVE) mg/dL Urine Glucose (UA) (NEGATIVE) mg/dL Urine Ketones (NEGATIVE) mg/dL Urine Occult Blood (NEGATIVE) Urine Nitrite (NEGATIVE) Urine Bilirubin (NEGATIVE) Urine Urobilinogen (<2.0) EU/dL Ur Leukocyte Esterase (NEGATIVE) Influenza Type A RNA NEGATIVE (NEGATIVE) Influenza Type B RNA NEGATIVE (NEGATIVE) SARS-CoV-2 RNA (HERN[place]N) NEGATIVE (NEGATIVE) 02/21/21 Range/Units 19:10 WBC (4.0-11.0) K/uL RBC (4.50-5.90) M/uL Hgb (13.0-17.0) g/dL Hct (38.0-50.0) % MCV (80.0-98.0) fL MCH (27.0-32.0) pg MCHC (31.0-37.0) g/dL RDW Std Deviation (28.0-62.0) fl RDW Coeff of Bandar (11.0-15.0) % Plt Count (150-400) K/uL MPV (7.40-12.00) fL Neut % (Auto) (48.0-80.0) % Lymph % (Auto) (16.0-40.0) % Stanley % (Auto) (0.0-15.0) % Eos % (Auto) (0.0-7.0) % Baso % (Auto) (0.0-1.5) % Neut # (Auto) (1.4-5.7) K/uL Lymph # (Auto) (0.6-2.4) K/uL Stanley # (Auto) (0.0-0.8) K/uL Eos # (Auto) (0.0-0.7) K/uL Baso # (Auto) (0.0-0.1) K/uL Nucleated RBC % /100WBC Nucleated RBCs # K/uL APTT (18.6-31.3) SEC Sodium (136-148) mmol/L Potassium (3.5-5.1) mmol/L Chloride (98-107) mmol/L Carbon Dioxide (21.0-32.0) mmol/L BUN (7.0-18.0) mg/dL Creatinine (0.8-1.3) mg/dL Est Cr Clr Drug Dosing mL/min Estimated GFR (MDRD) ml/min Glucose (74-106) mg/dL Lactic Acid (0.4-2.0) mmol/L Calcium (8.5-10.1) mg/dL Total Bilirubin (0.2-1.0) mg/dL AST (15-37) IU/L ALT (14-63) IU/L Alkaline Phosphatase (46-116) U/L Troponin I (0.000-0.056) ng/mL Total Protein (6.4-8.2) g/dL Albumin (3.4-5.0) g/dL Globulin (2.6-4.0) g/dL Albumin/Globulin Ratio (0.9-1.6) Lipase (73-393) U/L Urine Color YELLOW Urine Appearance CLEAR Urine pH 5.5 (5.0-8.0) Ur Specific [place] 1.010 (1.001-1.035) Urine Protein NEGATIVE (NEGATIVE) mg/dL Urine Glucose (UA) NEGATIVE (NEGATIVE) mg/dL Urine Ketones NEGATIVE (NEGATIVE) mg/dL Urine Occult Blood NEGATIVE (NEGATIVE) Urine Nitrite NEGATIVE (NEGATIVE) Urine Bilirubin NEGATIVE (NEGATIVE) Urine Urobilinogen 0.2 (<2.0) EU/dL Ur Leukocyte Esterase NEGATIVE (NEGATIVE) Influenza Type A RNA (NEGATIVE) Influenza Type B RNA (NEGATIVE) SARS-CoV-2 RNA (HERN[place]N) (NEGATIVE) Meds: Medications Generic Name Dose Route Start Last Admin Trade Name Parker PRN Reason Stop Dose Admin Heparin Sodium/Sodium Chloride 500 mls @ 27.941 mls/hr 02/21/21 19:38 02/21/21 19:46 Heparin 25,000 Units In 1/2 Ns 500 Ml IV 02/22/21 13:30 14 units/kg/hr NOW STA 27.941 mls/hr Administration Protocol 14 UNITS/KG/HR Sodium Chloride 10 ml 02/21/21 16:23 02/21/21 16:49 Sodium Chloride 0.9% 10 Ml Syringe FLUSH 10 ml ASDIRECTED PRN Administration Keep Vein Open Sodium Chloride 2.5 ml 02/21/21 16:23 02/21/21 16:49 Sodium Chloride 0.9% 2.5 Ml Syringe FLUSH 2.5 ml ASDIRECTED PRN Administration Keep Vein Open Discontinued Medications Generic Name Dose Route Start Last Admin Trade Name Parker PRN Reason Stop Dose Admin Heparin Sodium (Porcine) 5,000 units 02/21/21 19:04 02/21/21 19:19 Heparin Sodium 5,000 Units/Ml Vial IVPUSH 02/21/21 19:05 5,000 units ONETIME ONE Administration Hydromorphone HCl 0.5 mg 02/21/21 19:27 02/21/21 19:36 Hydromorphone 2 Mg/Ml Syringe IVPUSH 02/21/21 19:28 0.5 mg ONETIME ONE Administration Sodium Chloride 1,000 mls @ 999 mls/hr 02/21/21 16:27 02/21/21 16:48 Normal Saline IV 02/21/21 17:27 999 mls/hr STAT ONE Administration Piperacillin Sod/Tazobactam 50 mls @ 100 mls/hr 02/21/21 18:34 02/21/21 19:29 Sod 3.375 gm/ Sodium Chloride IV 02/21/21 19:03 Not Given ONETIME ONE Meropenem/Sodium Chloride 50 mls @ 100 mls/hr 02/21/21 18:36 02/21/21 19:35 Meropenem In Ns 1 Gm/50 Ml IV 02/21/21 19:05 100 mls/hr ONETIME ONE Administration Vancomycin HCl 1 gm/ Sodium 250 mls @ 166 mls/hr 02/21/21 18:38 02/21/21 19:15 Chloride IV 02/21/21 20:08 166 mls/hr ONETIME ONE Administration Sodium Chloride 1,000 mls @ 999 mls/hr 02/21/21 18:41 02/21/21 19:39 Normal Saline IV 02/21/21 19:41 999 mls/hr STAT ONE Administration Heparin Sodium/Sodium Chloride 500 mls @ 27.941 mls/hr 02/21/21 19:15 Heparin 25,000 Units In 1/2 Ns 500 Ml IV TITRATE CELINE Protocol 14 UNITS/KG/HR Iopamidol 100 ml 02/21/21 18:51 02/21/21 18:52 Iopamidol 755 Mg/Ml 100 Ml Bottle IVPUSH 02/21/21 18:52 100 ml ONETIME ONE Administration Ketorolac Tromethamine 30 mg 02/21/21 18:38 02/21/21 19:13 Ketorolac 30 Mg/Ml Sdv IVPUSH 02/21/21 18:39 30 mg ONETIME ONE Administration Ondansetron HCl 4 mg 02/21/21 19:27 02/21/21 19:37 Ondansetron 4 Mg/2 Ml Sdv IVPUSH 02/21/21 19:28 4 mg ONETIME ONE Administration Departure - Departure Time of Disposition: 20:32 Disposition: DC/Tfer to [facility] 02 Clinical Impression: Portal vein thrombosis Fever Qualifiers: Fever type: unspecified Qualified Code(s): R50.9 - Fever, unspecified Leukocytosis Qualifiers: Leukocytosis type: unspecified Qualified Code(s): D72.829 - Elevated white blood cell count, unspecified - Discharge Information Referrals: PCP,None [Primary Care Provider] - Forms: ED Department Discharge Sepsis Event Note (ED) - Evaluation Sepsis Screening Result: No Definite Risk - Focused Exam Vital Signs: Vital Signs Temp Pulse Resp BP Pulse Ox 02/21/21 19:50 103 H 20 91/56 L 96 02/21/21 19:38 109 H 101/64 93 L 02/21/21 16:49 98.2 F 91 18 107/76 98 02/21/21 15:48 97.3 F 100 20 106/72 96 - My Orders Last 24 Hours: My Active Orders 02/21/21 16:23 Sodium Chloride 0.9% [Saline Flush] 10 ml FLUSH ASDIRECTED PRN Sodium Chloride 0.9% [Saline Flush] 2.5 ml FLUSH ASDIRECTED PRN Saline Lock Insert [OM.PC] Stat 02/21/21 17:31 Blood Culture x2 Reflex Set [OM.PC] Stat 02/21/21 17:50 EKG Documentation Completion [RC] STAT 02/21/21 18:00 CULTURE BLOOD [BC] Stat 02/21/21 18:07 CULTURE BLOOD [BC] Stat 02/21/21 19:38 Heparin Sodium/0.45% NaCl [Heparin 25,000 Units in 1/2 NS 500 ML] 500 ml IV NOW - Assessment/Plan Last 24 Hours: My Active Orders 02/21/21 16:23 Sodium Chloride 0.9% [Saline Flush] 10 ml FLUSH ASDIRECTED PRN Sodium Chloride 0.9% [Saline Flush] 2.5 ml FLUSH ASDIRECTED PRN Saline Lock Insert [OM.PC] Stat 02/21/21 17:31 Blood Culture x2 Reflex Set [OM.PC] Stat 02/21/21 17:50 EKG Documentation Completion [RC] STAT 02/21/21 18:00 CULTURE BLOOD [BC] Stat 02/21/21 18:07 CULTURE BLOOD [BC] Stat 02/21/21 19:38 Heparin Sodium/0.45% NaCl [Heparin 25,000 Units in 1/2 NS 500 ML] 500 ml IV NOW
[2021-02-21] MEDS ORDERED: Piperacillin/Tazobactam 3.375 GM in Sodium Chloride 0.9% 50 ML IV ONE (18:34)
[2021-02-21] MEDS ORDERED: Meropenem Premix 50 ML IV ONE (18:36)
--- NOTE | 2021-02-21 18:36 | CR ---
INDICATION: Status post mesenteric thrombosis with postoperative fever. COMPARISON: None available. FINDINGS: An erect single view of the chest was obtained at 1822 hours. The lungs are clear. No focal or diffuse infiltrates are present. The heart is normal in size. The mediastinum is normal in appearance. The osseous structures are normal in appearance for the patient`s age. IMPRESSION: Normal chest single view. Dictated by Tim Dorsey MD @ 02/21/2021 6:35:[address] Tim Dorsey @ Feb 21 2021 6:35PM
[2021-02-21] MEDS ORDERED: Ketorolac 30 MG/ML SDV IVPUSH ONE (18:38)
[2021-02-21] MEDS ORDERED: Iopamidol 755 Mg/ML 100 ML Bottle IVPUSH ONE (18:51)
--- NOTE | 2021-02-21 18:56 | CT ---
INDICATION: Postoperative fever. Previous mesenteric vein thrombosis. COMPARISON: CT of the abdomen and pelvis with contrast from 02/04/2021 TECHNIQUE: CT examination of the abdomen and pelvis was performed with the uneventful intravenous administration of 100 cc of Omnipaque 350 while 3 mm thick axial sections were obtained from the lung bases through the pubic symphysis. Oral contrast was not administered. Please note that all CT scans at this facility use dose modulation, iterative reconstruction, and/or weight-based dosing when appropriate to reduce radiation dose to as low as reasonably achievable. FINDINGS: In the abdomen, the liver has new low-density in the distal branches of the superior posterior right portal vein, representing new right intrahepatic portal venous thrombosis in segment 7. This is seen as low-density in the previously enhancing intrahepatic portal vein. The previously seen nonocclusive thrombus in the SMV has moved more superiorly, near the confluence with the splenic vein, with clot burden appearing to be decreased. The previously seen thrombosed right lateral branch of the SMV is now free of thrombus. There is decreasing soft tissue stranding around the previously thrombosed vein. The main portal vein and splenic vein are otherwise widely patent. There is no sign of additional mesenteric branch venous thrombosis. There is a new small metallic sphere located in the right lobe of the liver between segments 5 and 6, possibly from embolization. Another small metallic foreign body is seen laterally in segment 6. These are not associated with any hepatic parenchymal abnormality. The spleen, pancreas, and adrenals are normal in appearance. The kidneys are normal in appearance. There is stable moderate cholelithiasis, with 2 large peripherally calcified gallstones measuring up to 1.9 centimeters in length in the gallbladder. There is no sign of gallbladder wall thickening or pericholecystic fluid. The abdominal aorta is normal in caliber with no sign of dilatation. There is no sign of retroperitoneal mass or adenopathy. The stomach, loops of small bowel, and right colon in the abdomen are normal in appearance. Again seen is severe diverticulosis of the descending colon with no sign of diverticulitis. In the pelvis, the appendix is again seen to be mildly dilated at 10 millimeters, but the previously seen wall thickening and periappendiceal soft tissue stranding has resolved with resolution of the previously seen right mesenteric vein thrombosis. The dilatation is probably a variant of normal, although acute appendicitis cannot be entirely excluded. There is stable severe sigmoid diverticulosis without evidence of diverticulitis. The loops of small bowel and colon in the pelvis are otherwise normal in appearance. The prostate remains normal in appearance. The urinary bladder is normal in appearance. There is no sign of pelvic or inguinal mass or adenopathy. There is no sign of free air or free fluid in the abdomen or pelvis. There has been no change in the 9 millimeter noncalcified subpleural nodule in the anterior-lateral right middle lobe on axial image 16 series 202. There is slightly increased linear atelectasis in the posterior lung bases. The lung bases are otherwise clear. There is no change in minimal posterior subluxation of L2 on L3 with moderate L2-3 disc degenerative disease. There is no change in severe L3-4 and L4-5 disc degenerative disease. IMPRESSION: Nothing seen to explain the patient`s fever, with no sign of deep-seated infection in the abdomen or pelvis. CT of the abdomen shows new thrombosis of the intrahepatic portal vein in the superior posterior right lobe of the liver, segment 7. Decrease in mesenteric venous thrombosis, with clearing of thrombus from the right lateral mesenteric vein and decrease in nonocclusive thrombus in the SMV, now with a small amount of thrombus seen in the superior SMV. Two new metallic densities in the right lobe of the liver, possibly from therapeutic embolism. Stable moderate cholelithiasis with no sign of acute cholecystitis. Stable severe diverticulosis of the descending colon with no sign of diverticulitis. CT of the pelvis shows continued mild dilatation of the appendix at 10 millimeters, but there is resolution of wall thickening and mild periappendiceal soft tissue stranding with clearance of the right lateral mesenteric vein thrombus. Nothing seen that would indicate acute appendicitis. Stable sigmoid diverticulosis with no sign of diverticulitis. Please note that all CT scans at this facility use dose modulation, iterative reconstruction, and/or weight-based dosing when appropriate to reduce radiation dose to as low as reasonably achievable. Dictated by Tim Dorsey MD @ 02/21/2021 6:55:[address] Tim Dorsey @ Feb 21 2021 6:55PM
[2021-02-21] MEDS ORDERED: Heparin Sodium 5,000 Units/ML Vial IVPUSH ONE (19:04)
[2021-02-21] MEDS ORDERED: Heparin Sodium/0.45% NaCl 500 ML IV SCH (19:15)
[2021-02-21] MEDS ORDERED: Ondansetron 4 MG/2 ML SDV IVPUSH ONE (19:27)
[2021-02-21] MEDS ORDERED: HYDROmorphone 2 MG/ML Syringe IVPUSH ONE (19:27)
[2021-02-21] MEDS ORDERED: Heparin Sodium/0.45% NaCl 500 ML IV STA (19:38)
--- NOTE | 2021-02-21 20:11 | PCM.EKG ---
#1 Interpretation EKG Date: 02/21/21 Time: 20:11 EKG Interpretation Comments: Normal sinus rhythm normal intervals and axis no acute ischemia significant baseline wander but across the 2 tracings can provide a reasonably accurate interpretation.
== END 2021-02-21 21:27 ==
LOC: MW.ED 15:12
DX: D72.829 Elevated white blood cell count, unspecified (principal); I81 Portal vein thrombosis; Z88.0 Allergy status to penicillin; Z20.822 Contact with and (suspected) exposure to COVID-19
CPT/HCPCS: 0240U; 36415; 71045; 74177; 80053; 81003; 83605; 83690; 84484; 85025; 85730; 87040; 87150; 93005; 96365; 96367; 96368; 96375; 99285; J1170; J1644; J1885; J2185; J2405; J3370; J7030; J7050; Q9967

== ENCOUNTER 2023-07-25 15:21 | Emergency (ER) | payer SELFPAY ==
[2023-07-25] MEDS ORDERED: Morphine 4 MG/ML Syringe IVPUSH ONE (15:24)
[2023-07-25] MEDS ORDERED: Iopamidol 755 MG/ML 500 ML Multipack Bottle IVPUSH STA (15:41)
[2023-07-25] MEDS ORDERED: Diphtheria,Pertussis(Acell),Tetanus Vaccine 0.5 ML Syringe IM ONE (15:45)
[2023-07-25 16:18] LABS: BASOPHILS ABSOLUTE AUTO 0.02 K/uL (0.00-0.20); BASOPHILS PERCENT AUTO 0.2 % (0.0-1.0); EOSINOPHILS ABSOLUTE AUTO 0.18 K/uL (0.00-0.45); EOSINOPHILS PERCENT AUTO 1.9 % (0.0-6.0); HEMATOCRIT 37.7 % (42.0-52.0); HEMOGLOBIN 13.1 g/dL (14.0-18.0); IMMATURE GRAN ABSOLUTE AUTO 0.04 K/uL (0.00-0.05); IMMATURE GRAN PERCENT AUTO 0.4 % (0.0-0.4); LYMPHOCYTES ABSOLUTE AUTO 1.02 K/uL (1.00-4.80); LYMPHOCYTES PERCENT AUTO 10.8 % (24.0-44.0); MEAN CORPUSCULAR HEMOGLOBIN 30.4 pg (28.0-32.0); MEAN CORPUSCULAR HGB CONC 34.7 g/dL (32.0-36.0); MEAN CORPUSCULAR VOLUME 87.5 fL (83.0-99.0); MEAN PLATELET VOLUME 9.1 fL (9.4-12.4); MONOCYTES ABSOLUTE AUTO 0.55 K/uL (0.00-0.80); MONOCYTES PERCENT AUTO 5.8 % (0.0-8.0); NEUTROPHILS ABSOLUTE AUTO 7.61 K/uL (1.80-7.70); NEUTROPHILS PERCENT AUTO 80.9 % (41.0-71.0); PLATELET COUNT,PLT 189 K/uL (150-400); RED BLOOD CELL COUNT 4.31 M/uL (4.52-5.90); WHITE BLOOD CELL COUNT,WBC 9.42 K/uL (3.9-11.3)
[2023-07-25 16:31] LABS: INR 1.07 (0.86-1.11); PTT,PARTIAL THROMBOPLSTIN TIME 31.4 SEC (23.9-30.7)
[2023-07-25 16:38] LABS: A/G RATIO 1.1 (0.9-1.6); ALBUMIN 3.8 g/dL (3.4-5.0); BILIRUBIN TOTAL 1.1 mg/dL (0.2-1.0); CALCIUM 9.3 mg/dL (8.5-10.1); CARBON DIOXIDE,CO2 28.8 mmol/L (21.0-32.0); CREATININE 0.9 mg/dL (0.8-1.3); POTASSIUM,K 3.5 mmol/L (3.5-5.1); PROTEIN TOTAL,TP 7.4 g/dL (6.4-8.2)
[2023-07-25] MEDS ORDERED: Acetaminophen 325 MG Tab PO ONE (17:40)
== END 2023-07-25 18:18 ==
LOC: MW.ED 15:21
DX: S06.0X0A Concussion without loss of consciousness, initial encounter (principal); S00.03XA Contusion of scalp, initial encounter; M25.511 Pain in right shoulder; M79.641 Pain in right hand; Z88.0 Allergy status to penicillin; Y04.8XXA Assault by other bodily force, initial encounter
CPT/HCPCS: 36415; 70450; 71260; 72125; 73120; 74177; 80053; 85025; 85610; 85730; 86850; 86900; 86901; 90471; 90715; 96374; 99284; A9270; J2270; Q9967

== ENCOUNTER 2024-10-12 06:17 | Emergency (ER) | payer MEDICAID ==
[2024-10-12 06:39] LABS: BASOPHILS ABSOLUTE AUTO 0.06 K/uL (0.00-0.20); BASOPHILS PERCENT AUTO 0.8 % (0.0-1.0); EOSINOPHILS ABSOLUTE AUTO 0.31 K/uL (0.00-0.45); EOSINOPHILS PERCENT AUTO 3.9 % (0.0-6.0); HEMATOCRIT 43.3 % (42.0-52.0); HEMOGLOBIN 15.4 g/dL (14.0-18.0); IMMATURE GRAN ABSOLUTE AUTO 0.02 K/uL (0.00-0.05); IMMATURE GRAN PERCENT AUTO 0.3 % (0.0-0.4); LYMPHOCYTES ABSOLUTE AUTO 1.94 K/uL (1.00-4.80); LYMPHOCYTES PERCENT AUTO 24.4 % (24.0-44.0); MEAN CORPUSCULAR HGB CONC 35.6 g/dL (32.0-36.0); MEAN CORPUSCULAR VOLUME 87.1 fL (83.0-99.0); MEAN PLATELET VOLUME 9.1 fL (9.4-12.4); MONOCYTES ABSOLUTE AUTO 0.52 K/uL (0.00-0.80); MONOCYTES PERCENT AUTO 6.5 % (0.0-8.0); NEUTROPHILS PERCENT AUTO 64.1 % (41.0-71.0); PLATELET COUNT,PLT 202 K/uL (150-400); RED BLOOD CELL COUNT 4.97 M/uL (4.52-5.90); WHITE BLOOD CELL COUNT,WBC 7.95 K/uL (3.9-11.3)
[2024-10-12 07:01] LABS: BLOOD UREA NITROGEN,BUN 14 mg/dL (7.0-18.0); CALCIUM 9.9 mg/dL (8.5-10.1); CARBON DIOXIDE,CO2 27.6 mmol/L (21.0-32.0); CHLORIDE,CL 101 mmol/L (98-107); CREATININE 0.9 mg/dL (0.8-1.3); EST CRCL DRUG DOSING (CG) 92.96 mL/min; GLUCOSE RANDOM 119 mg/dL (74-106); MAGNESIUM 1.7 mg/dL (1.8-2.4); POTASSIUM,K 4.8 mmol/L (3.5-5.1); SODIUM,NA 140 mmol/L (136-148)
[2024-10-12 07:03] LABS: ESTIMATED GFR 98 mL/min (>60)
[2024-10-12] MEDS ORDERED: Naloxone 0.4 MG/ML SDV IVPUSH PRN (07:31)
[2024-10-12] MEDS: Ketorolac 30 MG/ML SDV IVPUSH ONE (07:53)
[2024-10-12] MEDS: HYDROmorphone 0.5 MG/0.5 ML Syringe IVPUSH ONE (07:53)
[2024-10-12 08:40] LABS: APPEARANCE,URINE CLEAR; BILIRUBIN,URINE NEGATIVE (NEGATIVE); COLOR,URINE YELLOW; GLUCOSE,URINE NEGATIVE (NEGATIVE); KETONES,URINE NEGATIVE (NEGATIVE); LEUKOCYTE ESTERASE,URINE NEGATIVE (NEGATIVE); NITRITE,URINE NEGATIVE (NEGATIVE); OCCULT BLOOD,URINE NEGATIVE (NEGATIVE); PH,URINE 5.5 (5.0-8.0); PROTEIN,URINE NEGATIVE (NEGATIVE); UROBILINOGEN,URINE 0.2 EU/dL (<2.0)
[2024-10-12] MEDS: Iopamidol 755 MG/ML 500 ML Multipack Bottle IVPUSH STA (11:09)
== END 2024-10-12 12:01 | disposition home or self-care (01) ==
LOC: MW.ED 06:17
DX: R10.9 Unspecified abdominal pain (principal); F17.210 Nicotine dependence, cigarettes, uncomplicated; Z79.899 Other long term (current) drug therapy
CPT/HCPCS: 36415; 71046; 71275; 74174; 80048; 81003; 83735; 84484; 85025; 85379; 93005; 96374; 96375; 99284; J1885; Q9967; 93010; 99285

== ENCOUNTER 2025-01-16 11:30 | Emergency (ER) | payer MEDICAID ==
[2025-01-16] MEDS ORDERED: Sodium Chloride 0.9% 20 ML SDV IV PRN (13:42)
[2025-01-16] MEDS ORDERED: Sodium Chloride 0.9% 2.5 ML Syringe FLUSH PRN (13:42)
[2025-01-16] MEDS ORDERED: Sodium Chloride 0.9% 10 ML Syringe FLUSH PRN (13:42)
[2025-01-16] MEDS: Sodium Chloride 0.9% 1,000 ML IV ONE (13:48)
== END 2025-01-16 14:10 | disposition home or self-care (01) ==
LOC: MW.ED 11:30
DX: M25.561 Pain in right knee (principal); Z88.0 Allergy status to penicillin
CPT/HCPCS: 73562-26-RT; 73562-RT; 99282; 99283

== ENCOUNTER 2025-03-26 07:20 | Day surgery (SDC) | payer MEDICAID ==
[~2025-03-26 07:20] MED LIST: Bupivacaine 0.5%/EPINEPHrine 1:200,000 30 ML SDV ONE; Midazolam 1 MG/ML 2 ML SDV ONE; Ondansetron 4 MG/2 ML SDV ONE; Propofol 200 MG/20 ML SDV ONE; fentaNYL 100 MCG/2 ML SDV ONE
[2025-03-26] MEDS: Lactated Ringers 1,000 ML IV SCH (07:47)
[2025-03-26] MEDS ORDERED: ceFAZolin 2 GM in Water For Injection, Sterile 20 ML IVPUSH ONE (08:00)
[2025-03-26] MEDS ORDERED: Ondansetron 4 MG/2 ML SDV IVPUSH PRN (08:19)
[2025-03-26] MEDS ORDERED: Albuterol 0.083% 2.5 MG/3 ML Neb Soln NEB PRN (08:19)
[2025-03-26] MEDS ORDERED: Naloxone 0.4 MG/ML SDV IVPUSH PRN (08:19)
[2025-03-26] MEDS ORDERED: Dexamethasone 4 MG/ML 5 ML MDV ONE (08:34)
[2025-03-26] MEDS ORDERED: Ondansetron 4 MG/2 ML SDV ONE (08:34)
[2025-03-26] MEDS ORDERED: ePHEDrine 50 MG/ML SDV ONE (08:48)
[2025-03-26] MEDS: fentaNYL 50 MCG/ML SDV IVPUSH PRN (09:46)
== END 2025-03-26 10:35 | disposition home or self-care (01) ==
LOC: MW.SDS 07:20
PROVIDERS: ATTEND Orthopaedic Surgery
DX: S83.241A Other tear of medial meniscus, current injury, right knee, initial encounter (principal); F17.210 Nicotine dependence, cigarettes, uncomplicated; Z91.030 Bee allergy status; Z88.0 Allergy status to penicillin; X58.XXXA Exposure to other specified factors, initial encounter
CPT/HCPCS: 29881; J0690; J1100; J2003; J2250; J2704; J3010; J7120; J0665; J2371; J2405; J3490